=== PATIENT | female | born 1950 | race African-American/Black ===

== ENCOUNTER 2024-10-31 01:04 | Emergency (ER) | payer MEDICARE ==
[~2024-10-31] VITALS: Ht 160 cm; Wt 92.0 kg
[2024-10-31 01:07] VITALS: O2SAT 100
[2024-10-31 01:47] LABS: BASOPHILS % 0.5 % (0.0-2.0); EOSINOPHILS % 0.4 % (0.0-5.0); HEMATOCRIT. 33.9 % (36.0-48.0); HEMOGLOBIN. 10.6 g/dL (12.0-16.0); LYMPHOCYTES % 19.8 % (20.0-50.0); MEAN CORPUSCULAR HEMOGLOBIN 25.1 pg (28.0-32.0); MEAN CORPUSCULAR HGB CONC 31.4 g/dL (31.0-37.0); MEAN CORPUSCULAR VOLUME 80.1 fL (81.0-99.0); MEAN PLATELET VOLUME 7.8 fl (7.4-10.4); MONOCYTES % 10.2 % (2.0-8.0); NEUTROPHILS % 69.1 % (40.0-76.0); PLATELET 368 x1000/uL (130-400); RED BLOOD CELL COUNT 4.23 mill/uL (4.2-5.4); RED CELL DISTRIBUTION WIDTH 19.9 % (11.6-14.6); WHITE BLOOD COUNT 9.4 x1000/uL (4.5-11.0)
[2024-10-31] MEDS: LIDOCAINE 5% PATCH TOP SCH ×2 (01:56→04:59)
[2024-10-31 01:58] LABS: INR 0.9; PARTIAL THROMBOPLASTIN TIME 24.5 sec (23.4-31.0); PROTHROMBIN TIME 10.3 sec (9.6-11.0)
[2024-10-31 02:08] LABS: CHLORIDE 104 mEq/L (98-107); POTASSIUM 4.5 mEq/L (3.5-5.1); SODIUM 140 mEq/L (136-145)
[2024-10-31 02:09] LABS: CALCIUM 8.9 mg/dL (8.7-10.4); CARBON DIOXIDE 30 mEq/L (21-32)
[2024-10-31 02:14] LABS: CREATININE 1.1 mg/dL (0.6-1.0); GLUCOSE 84 mg/dL (70-105); UREA NITROGEN BLOOD 13 mg/dL (9-23)
[2024-10-31 02:16] LABS: TROPONIN I HIGH SENSITIVITY 7 ng/L (3.0-34)
[2024-10-31 02:23] LABS: ETHANOL BLOOD < 10 mg/dL (<10)
[2024-10-31] MEDS: ACETAMINOPHEN 1000MG/100ML 100 ML IV ONE (02:38)
[2024-10-31] MEDS: FUROSEMIDE 40MG/4ML VIAL IVP NR (02:47)
[2024-10-31 05:26] VITALS: BP 163/99; PULSE 85; RESP 23; TEMP 37.1; O2SAT 100
== END 2024-10-31 05:31 | disposition home or self-care (01) ==
LOC: ER 01:04
DX: I50.9 Heart failure, unspecified (principal); J44.9 Chronic obstructive pulmonary disease, unspecified; Z88.5 Allergy status to narcotic agent; Z79.899 Other long term (current) drug therapy; Z20.822 Contact with and (suspected) exposure to COVID-19
CPT/HCPCS: 80048; 80320; 83880; 85025; 85610; 85730; 84484; 87804 ×2; 36415; 71045; 93005; 96365; 96375; 99285; 87426; J1940; A4663; 99284; A4606; G0480; J0131